=== PATIENT | male | born 1970 | race Caucasian/White ===

== ENCOUNTER 2018-03-06 11:42 | Emergency (ER) | payer OTHER ==
[2018-03-06 12:13] LABS: BASO # 0.1 10^3/uL (0.0-0.2); BASO % 0.5 % (0.0-1.0); EOS # 0.1 10^3/uL (0.0-0.50); EOS % 1.1 % (0.0-3.0); HEMATOCRIT 47.8 % (42.0-52.0); IMMATURE GRANULOCYTE % 0.6 % (0-3.0); LYMPH # 2.3 10^3/uL (1.5-4.5); LYMPH % 23.2 % (24.0-44.0); MEAN CORPUSCULAR HEMOGLOBIN 29.7 pg (27.0-33.0); MEAN CORPUSCULAR HGB CONC 33.5 g/dl (32.0-36.5); MEAN CORPUSCULAR VOLUME 88.7 fl (80.0-96.0); MONO # 0.4 10^3/uL (0.0-0.8); MONO % 4.3 % (0.0-5.0); NEUTROPHILS % 70.3 % (36.0-66.0); PLATELET COUNT, AUTOMATED 190 10^3/uL (150-450); RED BLOOD COUNT 5.39 10^6/uL (4.30-6.10); RED CELL DISTRIBUTION WIDTH 13.4 % (11.5-14.5)
[2018-03-06] MEDS: NS 1,000 ML IV (12:15)
[2018-03-06] MEDS: MORPHINE 4 MG/ML 1ML VIAL/SYRINGE (J2270) IV (12:16)
[2018-03-06 12:23] LABS: PROTHROMBIN TIME 13.3 SECONDS (12.1-14.4)
[2018-03-06 12:24] LABS: PARTIAL THROMBOPLASTIN TIME 31.6 SECONDS (25.4-37.6)
[2018-03-06 12:49] LABS: ANION GAP 9 MEQ/L (8-16); BLOOD UREA NITROGEN 10 MG/DL (7-18); CALCIUM LEVEL 8.8 MG/DL (8.5-10.1); CARBON DIOXIDE LEVEL 25 MEQ/L (21-32); CHLORIDE LEVEL 106 MEQ/L (98-107); CPK CREATINE PHOSPHOKINASE 109 U/L (39-308); FREE T4 1.05 NG/DL (0.76-1.46); GLOMERULAR FILTRATION RATE > 60.0 (>60); GLUCOSE, FASTING 128 MG/DL (70-100); MAGNESIUM LEVEL 2.2 MG/DL (1.8-2.4); MB/CK RELATIVE INDEX 0.92 (< OR =4); POTASSIUM SERUM 4.3 MEQ/L (3.5-5.1); SODIUM LEVEL 140 MEQ/L (136-145); TROPONIN I < 0.02 NG/ML (< 0.10)
[2018-03-06] MEDS ORDERED: ISOVUE-370 76% 100ML VIAL (Q9967) As Ordered (12:53)
== END 2018-03-06 14:50 | disposition home or self-care (01) ==
LOC: M ED 11:42
DX: R55 Syncope and collapse (principal)
CPT/HCPCS: J2270

== ENCOUNTER → 2018-07-02 | Outpatient (CLI) | payer OTHER ==
--- NOTE | 2018-07-02 13:17 | REP ---
Chest two views HISTORY: Rib pain Comparison: None A 1.5 cm parenchymal density is present in the left perihilar area. The right lung is clear. The heart is normal in size. The pulmonary vasculature is normal in appearance. The bony structure is intact. IMPRESSION: There is a 1.5 cm parenchymal density in the left perihilar area. CT of the chest is recommended for further evaluation. Electronically Signed by David Nation MD 07/02/2018 01:09 P
--- NOTE | 2018-07-02 13:29 | REP ---
LEFT RIBS: Four views. HISTORY: Rib pain. There are healing fractures of the left 10th and 11th ribs. There is no new fracture. IMPRESSION:There are healing fractures of the left 10th and 11th ribs. Electronically Signed by David Nation MD 07/02/2018 01:41 P
== END ==
LOC: M ADAMS 11:43
PROVIDERS: ATTEND Physician Assistant
DX: R07.9 Chest pain, unspecified (principal)

== ENCOUNTER → 2018-07-02 | Outpatient (REF) | payer OTHER ==
[2018-07-02 19:42] LABS: ALBUMIN 4.2 GM/DL (3.2-5.2); ALT/SGPT 28 U/L (12-78); BILIRUBIN,TOTAL 0.4 MG/DL (0.2-1.0); BLOOD UREA NITROGEN 6 MG/DL (7-18); CALCIUM LEVEL 9.4 MG/DL (8.5-10.1); CARBON DIOXIDE LEVEL 28 MEQ/L (21-32); CHLORIDE LEVEL 107 MEQ/L (98-107); CHOLESTEROL LEVEL 340 MG/DL (<200); CREATININE FOR GFR 0.87 MG/DL (0.70-1.30); GLOMERULAR FILTRATION RATE > 60.0 (>60); GLUCOSE, FASTING 76 MG/DL (70-100); HDL CHOLESTEROL 34 MG/DL (>40); NON-HDL-C 306 MG/DL; POTASSIUM SERUM 5.1 MEQ/L (3.5-5.1); SODIUM LEVEL 142 MEQ/L (136-145); TOTAL PROTEIN 7.4 GM/DL (6.4-8.2); TRIGLYCERIDES LEVEL 471 MG/DL (<150)
== END ==
LOC: M LABDRWAD 19:14
PROVIDERS: ATTEND Physician Assistant
DX: Z82.49 Family history of ischemic heart disease and other diseases of the circulatory system (principal); Z83.3 Family history of diabetes mellitus; Z79.1 Long term (current) use of non-steroidal anti-inflammatories (NSAID)